=== PATIENT | male | born 1980 | race African-American/Black ===

== ENCOUNTER → 2019-10-07 | Outpatient (CLI) | payer BC ==
--- NOTE | 2019-10-07 14:45 | KCIC ---
EXAM: Abdomen sonogram. HISTORY: Pain. TECHNIQUE: Sonographic imaging of the abdomen was performed. COMPARISON: None. FINDINGS: The liver is upper normal in size. There is hepatic steatosis. No focal hepatic lesion is seen. The gallbladder is unremarkable. The common bile duct is normal in caliber. The kidneys are normal in size. There is no hydronephrosis. The spleen is normal in size. The aorta is normal in caliber. The inferior vena cava is patent. The pancreas is partially obscured due to bowel gas. IMPRESSION: 1. Hepatic steatosis and upper normal liver size. 2. Partially obscured pancreas due to bowel gas. Electronically signed by: Lana Morin MD (10/07/2019 2:42 PM) [id number]
== END | disposition home or self-care (01) ==
LOC: KCIC US 08:47
PROVIDERS: ATTEND Family Medicine
DX: K76.0 Fatty (change of) liver, not elsewhere classified (principal)
CPT/HCPCS: 76700